=== PATIENT | female | born 1970 | race Caucasian/White ===

== ENCOUNTER 2020-08-21 23:25 | Emergency (ER) | payer MEDICAID ==
[~2020-08-21] VITALS: Ht 154.9 cm; Wt 86.0 kg
[2020-08-22 02:13] LABS: CLARITY URINE CLEAR (CLEAR); COLOR URINE YELLOW (YELLOW); KETONES URINE NEGATIVE (NEGATIVE); LEUKOCYTE ESTERASE URINE 1+ (NEGATIVE); NITRITE URINE NEGATIVE (NEGATIVE); OCCULT BLOOD URINE TRACE (NEGATIVE); PH URINE 6.5 (4.5-8.0); PROTEIN URINE NEGATIVE (NEGATIVE); SPECIFIC GRAVITY URINE 1.021 (1.005-1.030); UROBILINOGEN URINE 0.2 E.U./dL (0.2-1.0)
[2020-08-22 03:19] LABS: BASOPHILS % 0.8 % (0.0-2.0); EOSINOPHILS % 4.2 % (0.0-5.0); HEMATOCRIT. 39.9 % (36.0-48.0); HEMOGLOBIN. 13.1 g/dL (12.0-16.0); LYMPHOCYTES % 36.3 % (20.0-50.0); MEAN CORPUSCULAR HEMOGLOBIN 27.6 pg (28.0-32.0); MEAN CORPUSCULAR VOLUME 84.3 fL (81.0-99.0); MEAN PLATELET VOLUME 7.9 fl (7.4-10.4); NEUTROPHILS % 45.7 % (40.0-76.0); PLATELET 332 x1000/uL (130-400); RED BLOOD CELL COUNT 4.73 mill/uL (4.2-5.4); RED CELL DISTRIBUTION WIDTH 14.1 % (11.6-14.6)
[2020-08-22 03:24] LABS: CHLORIDE 107 mEq/L (98-107)
[2020-08-22 03:45] VITALS: BP 115/78
== END 2020-08-22 04:30 | disposition home or self-care (01) ==
LOC: ER 23:25
DX: N39.0 Urinary tract infection, site not specified (principal); M54.9 Dorsalgia, unspecified
CPT/HCPCS: 36415; 80048; 81003; 85025; 93005; 99284

== ENCOUNTER 2020-10-14 16:21 | Emergency (ER) | payer MEDICAID ==
[~2020-10-14] VITALS: Ht 157.5 cm; Wt 100.0 kg
[2020-10-14 16:45] VITALS: BP 102/67
== END 2020-10-14 17:24 | disposition home or self-care (01) ==
LOC: ER 16:21
DX: L40.9 Psoriasis, unspecified (principal)
CPT/HCPCS: 99283

== ENCOUNTER 2021-10-07 13:14 | Emergency (ER) | payer MEDICAID ==
[~2021-10-07] VITALS: Ht 167.6 cm; Wt 73.0 kg
[2021-10-07] MEDS ORDERED: KETOROLAC 60MG/2ML VIAL IM ONE (14:30)
[2021-10-07 15:01] VITALS: BP 110/72
== END 2021-10-07 15:05 | disposition home or self-care (01) ==
LOC: ER 13:14
DX: S39.012A Strain of muscle, fascia and tendon of lower back, initial encounter (principal); G56.02 Carpal tunnel syndrome, left upper limb; X58.XXXA Exposure to other specified factors, initial encounter; Y93.89 Activity, other specified; Y92.89 Other specified places as the place of occurrence of the external cause; Y99.8 Other external cause status
CPT/HCPCS: 96372; 99283; J1885

== ENCOUNTER 2022-05-21 18:39 | Emergency (ER) | payer MEDICAID ==
[~2022-05-21] VITALS: Ht 157.5 cm; Wt 83.1 kg
[2022-05-22] MEDS ORDERED: BENZONATATE 200MG CAPSULE PO ONE
[2022-05-22] MEDS ORDERED: IBUPROFEN 800MG TABLET PO ONE
[2022-05-22] MEDS ORDERED: IBUP-2029 MT (00:02)
[2022-05-22] MEDS ORDERED: BENZ100C86 MT (00:02)
[2022-05-22] MEDS ORDERED: BENZONATATE 100MG CAPSULE PO NR (01:00)
[2022-05-22 01:10] VITALS: BP 123/75
== END 2022-05-22 01:16 | disposition home or self-care (01) ==
LOC: ER 18:39
DX: J06.9 Acute upper respiratory infection, unspecified (principal); Z20.822 Contact with and (suspected) exposure to COVID-19
CPT/HCPCS: 71045; 87426; 87804; 99284; C9803

== ENCOUNTER 2022-08-28 18:01 | Emergency (ER) | payer MEDICAID, OTHER ==
[~2022-08-28] VITALS: Ht 170.2 cm; Wt 75.0 kg
[~2022-08-28 18:01] MED LIST: BENZ100C86 MT; IBUP-2029 MT
[2022-08-28 18:10] VITALS: BP 128/72
[2022-08-28] MEDS ORDERED: ZINC113C10 TP (22:19)
[2022-08-28] MEDS ORDERED: FLUC100T42 MT (22:19)
[2022-08-28] MEDS ORDERED: CLOT15CR27 TP (22:19)
[2022-08-28] MEDS ORDERED: FLUCONAZOLE 100MG TABLET PO ONE (22:30)
== END 2022-08-28 22:39 | disposition home or self-care (01) ==
LOC: ER 18:01
DX: L30.4 Erythema intertrigo (principal)
CPT/HCPCS: 99283

== ENCOUNTER 2024-02-24 13:01 | Emergency (ER) | payer MEDICAID, OTHER ==
[~2024-02-24] VITALS: Ht 165.1 cm; Wt 63.5 kg
[~2024-02-24 13:01] MED LIST changes: +CLOT15CR27 TP; +FLUC100T42 MT; +ZINC113C10 TP
[2024-02-24 13:42] VITALS: O2SAT 100
[2024-02-24] MEDS ORDERED: TUSSL MT (15:58)
[2024-02-24 16:45] VITALS: BP 124/74; PULSE 78; RESP 16; TEMP 98.4
== END 2024-02-24 16:24 | disposition home or self-care (01) ==
LOC: ER 13:01
DX: B34.9 Viral infection, unspecified (principal)
CPT/HCPCS: 71046; 99283

== ENCOUNTER 2025-04-22 00:33 | Emergency (ER) | payer MEDICAID ==
[~2025-04-22] VITALS: Ht 162.6 cm; Wt 79.6 kg
[~2025-04-22 00:33] MED LIST changes: +TUSSL MT
[2025-04-22 00:59] VITALS: O2SAT 95
[2025-04-22 01:00] VITALS: BP 126/70; PULSE 81; RESP 18; TEMP 37; O2SAT 96
[2025-04-22] MEDS ORDERED: NAPHADR EACHEYE (02:45)
[2025-04-22] MEDS ORDERED: OCUFLX EACHEYE (02:45)
== END 2025-04-22 02:58 | disposition home or self-care (01) ==
LOC: ER 00:39
DX: H10.13 Acute atopic conjunctivitis, bilateral (principal); E03.9 Hypothyroidism, unspecified; Z79.899 Other long term (current) drug therapy
CPT/HCPCS: 99283

== ENCOUNTER 2025-05-06 11:22 | Emergency (ER) | payer MEDICAID ==
[~2025-05-06] VITALS: Ht 162.6 cm; Wt 56.0 kg
[~2025-05-06 11:22] MED LIST changes: +NAPHADR EACHEYE; +OCUFLX EACHEYE
[2025-05-06 11:44] VITALS: O2SAT 97
[2025-05-06] MEDS: KETOROLAC 30MG/ML VIAL IM ONE (14:12)
[2025-05-06] MEDS ORDERED: NAPR-681 MT (15:51)
[2025-05-06 16:04] VITALS: BP 109/78; PULSE 76; RESP 16; TEMP 37.1; O2SAT 97
== END 2025-05-06 16:09 | disposition home or self-care (01) ==
LOC: ER 11:49
DX: M79.672 Pain in left foot (principal); E03.9 Hypothyroidism, unspecified; Z79.899 Other long term (current) drug therapy
CPT/HCPCS: 99283; 73630; 96372; J1885